=== PATIENT | male | born 1970 | race Caucasian/White ===

== ENCOUNTER 2020-05-23 10:46 | Emergency (ER) | payer BC, SELFPAY ==
[2020-05-23 11:20] VITALS: BP 139/87; PULSE 77; RESP 17; TEMP 36.9; O2SAT 98; BMI 32.1
--- NOTE | 2020-05-23 11:36 | HMH.EDUTC ---
[facility] [place] Clinical Impression: Encounter for laboratory testing for COVID-19 virus Disposition: Home, Self-Care Condition on Discharge: Good Instructions: DI for COVID-19 (Suspected or Confirmed ), COVID-19: Testing and Tracing, Preventing the Spread of Coronavirus Discharge Instructions Additional Instructions: *Monitor Temp, Over the counter Motrin or Tylenol as directed/as needed Tylenol every 4 hours and Motrin every 6 hours (as long as your family doctor has told you that you can take it) for fever or pain. and straight to ER if unable to lower temp less than 101.0 after medication given *Warm salt water gargles may help to soothe the throat *Throat Lozenges *Warm fluids like tea with honey may help to soothe the throat *Sleep elevated *Humidifier/Vaporizer *Flonase 2 sprays in each nostril daily but be aware that it may take 2-3 days before you notice improvement Follow up IMMEDIATELY for new or worsening symptoms or no Noticeable improvement over the next 48-72 hours. 911 for difficulty breathing or swallowing You were tested for today for COVID19 your test result should be back in the next 24-48 hours, you may call to the [facility] to see if your test results are back in the next 48 hours [phone] [facility] hours are 9am-9pm You was given a handout with instructions for Self Quarantine and Self isolation for while you wait on test results and what to do if they are positive If you are positive the Health Dept will be contacting you also Prescriptions: Fluticasone Propionate [Flonase 50mcg nasal spray 16gm] 1 - 2 spr NS DAILY #1 bottle Transmission Status: Pending to [facility] Referrals: Jaden Loja MD [Primary Care Provider] - As needed Forms: Work/School Release Time of Disposition: 11:42 Medical Decision Making - Justice Inquiry Pt receiving controlled substance: No Justice was queried for this patient: No Vital Signs: 05/23/20 11:33 Temperature 98.4 F Temperature Source Oral Pulse Rate [Right Brachial] 77 Respiratory Rate 17 Blood Pressure [Right Arm] 139/87 Blood Pressure Mean [Right Arm] 104 Blood Pressure Source [Right Arm] Automatic Cuff Blood Pressure Position [Right Arm] Sitting 02 Sat by Pulse Oximetry 98 Oxygen Delivery Method Room Air Orders (Tests/Meds): ORDERS Category Date Time Status Covid-19 Nasal PCR ([facility]) Routine Lab 05/23/20 11:23 Ordered [facility] UTC HPI - General Stated complaint: Covid test Time Seen by Provider: 05/23/20 11:36 Mode of Arrival: Ambulatory Source of Information: Patient Limitations: No Limitations Description of Symptoms (Recalled from Triage Doc. by RN): PATIENT REQUESTING COVID TEST D/T EXPOSURE. C/O SNEEZING AND RUNNY NOSE SINCE THIS MORNING HEENT Symptoms (Recalled from RN notes): Yes Resp Symptoms (Recalled from RN notes): No Skin Symptoms (Recalled from RN notes): No MS Symptoms (Recalled from RN notes): No Functional Status (Recalled from RN notes): WNL - History of Present Illness Provider Complaint: Patient state that he has been having some nasal congestion and drainage State that he has been having clear drainage from his nose States that he does have allergies and not sure if that is going on or not so he come in to get checked - Related Data Home Medications Medication Instructions Recorded Confirmed lisinopril 20 mg tablet PO #60 tab 01/11/19 01/11/19 Previous Rx's Medication Instructions Recorded Fluticasone Propionate [Flonase 1 - 2 spr NS DAILY #1 bottle 05/23/20 50mcg nasal spray 16gm] Allergies Allergy/AdvReac Type Severity Reaction Status Date / Time No Known Allergies Allergy Unverified 01/14/19 15:19 - Worker's Comp Is this a Worker's Comp case?: No [facility] History - Hepatitis A Screen Drug use history?: No High risk sexual behaviors?: No History of sexually transmitted infection?: No Currently employed?: No Childcare worker?: No Do you have indoor plumbing?: Yes Do you have electr
[2020-05-23 11:51] VITALS: BP 139/87; PULSE 77; RESP 17; TEMP 36.9; O2SAT 98
--- NOTE | 2020-05-23 20:59 | PC.NURSE ---
PT NOTIFIED OF POSITIVE COVID RESULTS
== END 2020-05-23 11:55 | disposition home or self-care (01) ==
PROVIDERS: Emergency Provider Nurse Practitioner; PCP Family Medicine
DX: U07.1 COVID-19 (principal); I10 Essential (primary) hypertension
CPT/HCPCS: 99202; G0463; U0003

== ENCOUNTER 2024-05-29 21:47 | Emergency (ER) | payer BC, SELFPAY ==
[2024-05-29 21:47] VITALS: BP 148/81; PULSE 89; RESP 22; TEMP 36.8; O2SAT 100; BMI 32.1
[2024-05-29 21:58] VITALS: BP 148/81; O2SAT 95
[2024-05-29 22:01] VITALS: BP 147/93; O2SAT 95
--- NOTE | 2024-05-29 22:01 | CT_ITS ---
PROCEDURE INFORMATION: Exam: CT Cervical Spine Without Contrast Exam date and time: 05/30/2024 12:01 AM Age: 53 years old Clinical indication: Injury or trauma; Fall; Blunt trauma; Additional info: Head injury after fall TECHNIQUE: Imaging protocol: Computed tomography of the cervical spine without contrast. Radiation optimization: All CT scans at this facility use at least one of these dose optimization techniques: automated exposure control; mA and/or kV adjustment per patient size (includes targeted exams where dose is matched to clinical indication); or iterative reconstruction. COMPARISON: CT HEAD/BRAIN WO CON 05/29/2024 11:55 PM FINDINGS: Bones: The alignment of the cervical spine is within normal limits. No evidence of acute fractures, dislocations, or subluxations is noted. The vertebral bodies and intervertebral disc spaces are well-preserved. The spinal canal is patent, with no evidence of spinal stenosis or neural foraminal narrowing. No acute posttraumatic changes are observed. There is no evidence of ligamentous injury, soft tissue swelling, or hematoma. While this study was primarily performed in the context of trauma, it is worth noting that there are no significant degenerative changes. There is straightening of the normal spinal curvature. Prevertebral and retropharyngeal spaces: The prevertebral and paraspinous soft tissues appear normal, without evidence of fluid collection. Lungs: Lung apices are normal. Nerves: No significant nerve root impingement is identified. Soft tissues: See Bones finding. IMPRESSION: In the context of posttraumatic evaluation, the cervical spine CT demonstrates no acute fractures, dislocations, or subluxations. There is no evidence of spinal canal or neural foraminal stenosis. No acute posttraumatic soft tissue or ligamentous injuries are identified.
--- NOTE | 2024-05-29 22:01 | CT_ITS ---
PROCEDURE INFORMATION: Exam: CT Head Without Contrast Exam date and time: 05/29/2024 11:55 PM Age: 53 years old Clinical indication: Injury or trauma; Fall; Blunt trauma (contusions or hematomas); Additional info: Head injury after fall TECHNIQUE: Imaging protocol: Computed tomography of the head without contrast. Radiation optimization: All CT scans at this facility use at least one of these dose optimization techniques: automated exposure control; mA and/or kV adjustment per patient size (includes targeted exams where dose is matched to clinical indication); or iterative reconstruction. COMPARISON: CT HEAD/BRAIN WO CON 05/29/2024 11:55 PM FINDINGS: Brain: There is moderate subarachnoid hemorrhage in the parafalcine regions bilaterally. No evidence for midline shift or significant mass effect. There is a small right basal ganglia cyst. Cerebral ventricles: No ventriculomegaly. Paranasal sinuses: Visualized sinuses are unremarkable. No fluid levels. Mastoid air cells: Visualized mastoid air cells are well aerated. Bones: Unremarkable. No acute fracture. Soft tissues: There is large soft tissue swelling over the high left parietal calvarium. IMPRESSION: Moderate volume bilateral parafalcine subarachnoid hemorrhage. No midline shift or mass effect.
--- NOTE | 2024-05-29 22:07 | ED_ITS ---
Discharge Plan Disposition Patient Disposition: Home, Self-Care Prescriptions Prescriptions: New methocarbamol 500 mg tablet 1,000 mg PO Q6H PRN (Reason: pain) Qty: 30 0RF No Action lisinopril 20 mg tablet 20 mg PO DAILY Qty: 60 fluticasone propionate 120 SPR/BOT bottle 1 - 2 spr NS DAILY Qty: 1 0RF Rx Instructions: one spray in each nostril daily Referrals Follow up/Referrals: Jaden Loja MD [Primary Care Provider] - See instructions Activity Restrictions/Add. Instructions Additional Instructions/Restrictions: Please follow-up with your primary care provider. Please return to the emergency department if you develop any new or worsening symptoms or become c oncerned for your health. Your rupal will need to be removed in the next 7 to 10 days. Please keep the area clean and dry, please allow warm soapy water to run over it in the shower, do not soak it. Clinical Impressions Clinical Impression: Head injury, Laceration of scalp Print Language Print Language: [place] Discharge ED Provider: Serg Link General Adult HPI <Manohar Billingsley MD - Last Filed: 05/29/24 22:50> General Chief complaint: Fall Stated complaint: fall from standing position + LOC Time Seen by Provider: 05/29/24 21:49 Mode of Arrival: EMS Source of Information: Patient and EMS Limitations: No Limitations Description of Symptoms (Recalled from ER Triage Doc. by RN): pt arrived via ems w/ c/o mechanical fall from standing position s/p slip and fall on ice. +loc, - blood thinners. pt A&0, c-collar in place. lac to posterior scalp noted History of Present Illness HPI narrative: 53-year-old male presenting today after a head injury and loss of consciousness. Was at work and was carrying a grease rajput with lukewarm grease where he slipped and fell struck his head on the ground of the side of the wall he is unclear as he does not recall anything beyond falling. Woke up in the ambulance. Did have loss of consciousness. Currently denies any symptoms other than some mild pain at the site of the head laceration and pain. Denies being on any blood thinners. He does admit to having 6 or 7 beers. Denies any significant cervical spine pain chest abdomen pelvis or otherwise long bone pain. Tetanus status is unknown Related Data Home Medications ?Medication ?Instructions ?Recorded ?Confirmed lisinopril 20 mg tablet 20 mg PO DAILY Hypertension #60 01/11/19 05/23/20 tabs Previous Rx's ?Medication ?Instructions ?Recorded fluticasone propionate 50 1 - 2 spr NS DAILY ##1 05/23/20 mcg/actuation nasal spray,suspension methocarbamol 500 mg tablet 1,000 mg (2 x 500 mg) PO Q6H PRN 05/30/24 pain #30 tabs Allergies Allergy/AdvReac Type Severity Reaction Status Date / Time No Known Allergies Allergy Unverified 01/14/19 15:19 ON LICENSE OF [facility] <Manohar Billingsley MD - Last Filed: 05/29/24 22:50> ON LICENSE OF [facility] Disclaimer: The information contained in this section may have been updated after the patient was seen, as this information can be updated by other users. Social History (System 01/14/19 @ 15:19 by Lakia Benavidez) Smoking Status: Never smoker alcohol intake: never substance use type: denies use current occupational status: other Travel in the last 8 weeks: None household members: family housing: house Have you lived/traveled outside US in past 30 days?: No Contact w/someone who lives/traveled outside US past 30 days?: No Exposure to someone with infectious disease in past 14 days?: No Do you have a fever (greater than 100.4 F or 38 C)?: No Have you tested positive for COVID-19: No Exposed to someone with COVID-19 in past 14 days?: No Do you have a sore throat?: No Do you have a cough?: No Do you have any weakness?: No Do you have any diarrhea?: No Are you experiencing any unusual bleeding?: No Do you have any muscle aches/pain?: No Do you have any abdominal pain?: No Are you experiencing loss of taste or smell?: No Other Medical History Have you received the Pneumonia Vaccine: No <Manohar Billingsley MD - Last Filed: 05/29/24 22:50> ROS Obtained: Yes All systems reviewed & no additional complaints except as documented Physical Exam <Manohar Billingsley MD - Last Filed: 05/29/24 22:50> General General appearance: alert and in no apparent distress Head Head exam: other (No depressible fracture Islas sign or raccoon eyes there is a 5 cm jagged laceration in the scalp in the posterior aspect no obvious foreign bodies noted) Neck Neck exam: Absent tenderness (In c-collar) Chest Chest inspection: Present normal inspection; Absent symmetric chest wall rise Respiratory Respiratory exam: Present normal lung sounds bilaterally; Absent respiratory distress Cardiovascular Cardiovascular exam: Present regular rate; Absent normal rhythm Abdominal Exam Abdominal exam: Present soft; Absent distention Neurological Exam Neurological exam: Present alert, oriented X3, CN II-XII intact and normal gait; Absent motor sensory deficit Medical Decision Making <Manohar Billingsley MD - Last Filed: 05/29/24 22:50> Medical Records Screening: Per USPSTF and CDC recommendations, given the prevalence of disease in our region, it is our hospital?s policy to screen for HIV and viral Hepatitis for all patients aged 18 and over and those with ongoing risk factors. Justice Inquiry Pt receiving controlled substance: No Vital Signs: 05/29/24 21:47 05/29/24 21:58 05/29/24 22:01 Temperature 98.2 F Temperature Source Oral Pulse Rate Pulse Rate [Apical] 89 Respiratory Rate 22 Blood Pressure 148/81 H 147/93 H Blood Pressure [Right Arm] 148/81 H Blood Pressure Mean 97 109 Blood Pressure Mean [Right Arm] 103 02 Sat by Pulse Oximetry 100 95 95 Oxygen Delivery Method Room Air Room Air Room Air 05/29/24 22:30 Temperature Temperature Source Pulse Rate 80 Pulse Rate [Apical] Respiratory Rate 19 Blood Pressure 152/96 H Blood Pressure [Right Arm] Blood Pressure Mean 115 Blood Pressure Mean [Right Arm] 02 Sat by Pulse Oximetry 95 Oxygen Delivery Method Room Air Orders (Tests/Meds): ED MEDICATIONS Discontinued Medications Generic Name Dose Route Start Last Admin Trade Name Freq PRN Reason Stop Dose Admin Tetanus/Reduced Diphtheria/Acell Pertussis 0.5 ml 05/29/24 22:01 05/29/24 22:32 Tet/Diphth/Pert-Adult 0.5ml Syringe IM 05/29/24 22:02 0.5 ml .ONCE ONE Administration ORDERS Category Date Time Status CT cervical spine wo con Stat Cat Scan 05/29/24 22:[address] head/brain wo con Stat Cat Scan 05/29/24 22:01 Taken Medical Decision Narrative: Patient with above history and physical GCS of 15 normal neurologic exam does not appear clinically intoxicated at the moment. Only has pain in the posterior aspect of his head but given the fact that he has had a few beers we will get a CT scan of his head and cervical spine. Patient has no chest abdomen pelvis or long bone pain. No indication that this was a syncopal episode rather a loss of consciousness after a minor head injury. Likely has had a mild concussion. Scans pending Tdap updated will reassess shortly. Additionally laceration was repaired with rupal which will be removed in 10 days Care transitioned to Dr. Link at 11 PM to evaluate patient CT scans and final disposition. <Serg Link MD - Last Filed: 05/30/24 00:26> Vital Signs: 05/29/24 21:47 05/29/24 21:58 05/29/24 22:01 Temperature 98.2 F Temperature Source Oral Pulse Rate Pulse Rate [Apical] 89 Respiratory Rate 22 Blood Pressure 148/81 H 147/93 H Blood Pressure [Right Arm] 148/81 H Blood Pressure Mean 97 109 Blood Pressure Mean [Right Arm] 103 02 Sat by Pulse Oximetry 100 95 95 Oxygen Delivery Method Room Air Room Air Room Air 05/29/24 22:30 Temperature Temperature Source Pulse Rate 80 Pulse Rate [Apical] Respiratory Rate 19 Blood Pressure 152/96 H Blood Pressure [Right Arm] Blood Pressure Mean 115 Blood Pressure Mean [Right Arm] 02 Sat by Pulse Oximetry 95 Oxygen Delivery Method Room Air Orders (Tests/Meds): ED MEDICATIONS Discontinued Medications Generic Name Dose Route Start Last Admin Trade Name Freq PRN Reason Stop Dose Admin Tetanus/Reduced Diphtheria/Acell Pertussis 0.5 ml 05/29/24 22:01 05/29/24 22:32 Tet/Diphth/Pert-Adult 0.5ml Syringe IM 05/29/24 22:02 0.5 ml .ONCE ONE Administration ORDERS Category Date Time Status CT cervical spine wo con Stat Cat Scan 05/29/24 22:[address] head/brain wo con Stat Cat Scan 05/29/24 22:01 Taken Medical Decision Narrative: Patient with above history and physical GCS of 15 normal neurologic exam does not appear clinically intoxicated at the moment. Only has pain in the posterior aspect of his head but given the fact that he has had a few beers we will get a CT scan of his head and cervical spine. Patient has no chest abdomen pelvis or long bone pain. No indication that this was a syncopal episode rather a loss of consciousness after a minor head injury. Likely has had a mild concussion. Scans pending Tdap updated will reassess shortly. Additionally laceration was repaired with rupal which will be removed in 10 days Care transitioned to Dr. Link at 11 PM to evaluate patient CT scans and final disposition. Fariba EVANS: I assumed care of the patient at the time of handoff from the prior provider. On reassessment patient remains hemodynamically stable. CT imaging shows no acute intracranial trauma, no acute cervical fracture. No fracture on the radiographs. Laceration remains hemostatic. Patient's c-collar was cleared at bedside. No midline C-spine tenderness. No pain with range of motion of the midline. Does have some right paraspinal/trapezius pain. Patient discharged in stable condition with return precautions instructions regarding wound care and symptomatic care and prescription for Robaxin. Procedures <Manohar Billingsley MD - Last Filed: 05/29/24 22:50> Laceration Laceration 1: Site: scalp Size (cm): 5 Description: linear Depth: simple, single layer Local Anesthetic: lidocaine 1% and with epi Amount of anesthesia used (mL): 5 Pre-repair: irrigated extensively Skin layer closed with: other (rupal x 6 ) Critical Care <Manohar Billingsley MD - Last Filed: 05/29/24 22:50> Critical Care Time Critical Care Time: No
--- NOTE | 2024-05-29 22:09 | PC.NURSE ---
Report given to Karlie LARIOS
[2024-05-29 22:30] VITALS: BP 152/96; PULSE 80; RESP 19; O2SAT 95
[2024-05-29] MEDS: TET/DIPHTH/PERT-ADULT 0.5ML SYRINGE 0.5 ML IM (22:32)
[2024-05-29 23:00] VITALS: BP 152/92; PULSE 76; RESP 15; O2SAT 96
[2024-05-29 23:30] VITALS: BP 157/81; PULSE 80; RESP 15; O2SAT 96
--- NOTE | 2024-05-30 00:01 | INFXCTL.NOTE ---
Pt to CT scan via stretcher
[2024-05-30 00:30] VITALS: BP 148/85; PULSE 84; RESP 23; O2SAT 95
--- NOTE | 2024-05-30 00:39 | PC.NURSE ---
Contacted transfer center regarding transfer of this patient. Once images had been power shared they will give us a call back. RAD called to [facility].
[2024-05-30 00:48] LABS: Basophils # 0.1 K/mm3 (0-0.2); Basophils % 0.5 % (0.1-2.0); Eosinophils # 0.1 K/mm3 (0.0-0.4); Eosinophils % 0.9 % (0.1-12.0); Hemoglobin 14.2 g/dL (14.1-18.0); Lymphocytes # 1.5 K/mm3 (0.7-4.5); Mean Corpuscular HGB Conc 34.6 g/dL (31.8-35.4); Mean Corpuscular Hemoglobin 28.7 pg (27.0-31.2); Mean Platelet Volume 8.8 fl (7.4-10.4); Monocytes # 0.8 K/mm3 (0.1-1.0); Monocytes % 8.5 % (1.7-9.3); Neutrophils # 6.9 K/mm3 (1.8-7.8); Neutrophils % 73.8 % (37.0-80.0); Platelet Count 295 K/mm3 (142-424); Red Blood Count 4.94 M/mm3 (4.60-6.20); Red Cell Distribution Width 11.9 % (11.5-17.5); White Blood Count 9.3 K/mm3 (4.8-10.8)
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
--- NOTE | 2024-05-30 00:49 | XR_ITS ---
PROCEDURE INFORMATION: Exam: XR Chest Exam date and time: 05/30/2024 12:56 AM Age: 53 years old Clinical indication: Injury or trauma; Fall; Shortness of breath; Blunt trauma (contusions or hematomas); Additional info: SOA TECHNIQUE: Imaging protocol: Radiologic exam of the chest. Views: 1 view. COMPARISON: CT CERVICAL SPINE WO CON 05/30/2024 12:01 AM FINDINGS: Lungs: No evidence of acute pulmonary disease or infiltrates Pleural spaces: No large effusion or pneumothorax. Heart/Mediastinum: No evidence of mediastinal widening or cardiac silhouette enlargement; the mediastinum and heart appear within normal limits for contour and size. Bones/joints: No evidence of acute osseous abnormalities within the visualized portions of the thoracic spine and ribs. Osseous structures appear appropriate for patient age. IMPRESSION: No dense parenchymal consolidation, pleural effusion, or pneumothorax.
[2024-05-30 00:53] LABS: Albumin Level 4.2 g/dl (3.5-5.0); Chloride 99 mmol/L (98-107); Potassium 4.1 mmoL/L (3.5-5.1); Sodium 132 mmol/L (136-145)
--- NOTE | 2024-05-30 00:54 | PC.NURSE ---
Dr. Link on phone with at this time.
[2024-05-30 00:56] LABS: Alanine Aminotransferase 39 U/L (12-78); Albumin/Globulin Ratio 1.4 (1.1-1.8); Alkaline Phosphatase 110 U/L (38-126); Anion Gap 13.1 mEq/L (5-15); Aspartate Amino Transferase 60 U/L (17-59); Bilirubin,Total 0.6 mg/dl (0.2-1.3); Blood Urea Nitrogen 13 mg/dl (9-20); Carbon Dioxide 24 mmol/L (22.0-30.0); Creatinine Clearance Estimated 208 mL/min (50-200); Estimated Glomerular Filt Rate 140 ml/min (>60); GFR (African American) 170 ML/MIN (>60); Globulin 2.9 g/dL (1.3-3.2); Total Protein,Serum 7.1 g/dl (6.3-8.2)
[2024-05-30 00:57] LABS: Calcium 9.3 mg/dl (8.4-10.2); Glucose 115 mg/dl (74-100)
[2024-05-30 00:59] LABS: Activated Partial Thrombo Time 28.3 seconds (22.8-30.6); INR 1.05 (0.9-1.1); Prothrombin Time 11.7 seconds (10.1-12.5)
[2024-05-30 01:00] VITALS: BP 160/89; PULSE 88; RESP 23; O2SAT 97
[2024-05-30 01:07] VITALS: BP 160/89; PULSE 91; RESP 18; TEMP 36.6; O2SAT 99
[2024-05-30 01:30] VITALS: BP 164/91; PULSE 90; RESP 24; O2SAT 96
== END 2024-05-30 01:57 | disposition other institution (70) ==
PROVIDERS: Emergency Provider Emergency Medicine; PCP Family Medicine
DX: S06.6X1A Traumatic subarachnoid hemorrhage with loss of consciousness of 30 minutes or less, initial encounter (principal); S01.01XA Laceration without foreign body of scalp, initial encounter; Z23 Encounter for immunization; R51.9 Headache, unspecified; W00.0XXA Fall on same level due to ice and snow, initial encounter; Y93.89 Activity, other specified; Y92.89 Other specified places as the place of occurrence of the external cause
CPT/HCPCS: 70450; 71045; 72125; 72170; 80053; 85025; 85610; 85730; 90471; 90715; 99285

== ENCOUNTER 2024-07-05 15:10 | Outpatient (CLI) | payer BC, SELFPAY ==
--- NOTE | 2024-07-05 15:15 | XR_ITS ---
FINAL REPORT CLINICAL HISTORY: INJURY fell 1 month ago; states swelling around 1st digit FINDINGS: AP, oblique, and lateral views of the left wrist were obtained. There is no prior exam for comparison. There is no acute fracture or dislocation. The joint spaces are preserved. The soft tissues are normal. IMPRESSION: No acute osseous abnormality of the left wrist. If pain persists, MR is recommended. Reviewed, Interpreted and Dictated by Lucero Burrows MD Transcribed by Gail Winchester Authenticated and [facility]
== END 2024-07-05 23:59 | disposition home or self-care (01) ==
LOC: RAD 15:12
PROVIDERS: PCP Family Medicine; Visit Provider Nurse Practitioner
DX: S69.92XA Unspecified injury of left wrist, hand and finger(s), initial encounter (principal)
CPT/HCPCS: 73110

== ENCOUNTER 2024-07-19 12:44 | Emergency (ER) | payer BC, SELFPAY ==
[2024-07-19 12:53] VITALS: BP 161/90; PULSE 113; RESP 18; TEMP 36.6; O2SAT 97; BMI 32.8
--- NOTE | 2024-07-19 13:39 | ECG_ITS ---
APPROVED REPORT Exam: Resting ECG HR:103 bpm ECG Measurements Heart Rate 103 AXES WY 180 P 44 QRSd 84 QRS 12 QT 328 T 29 QTc 387 Conclusion SINUS TACHYCARDIA ABNORMAL RHYTHM ECG UNCONFIRMED REPORT Electronically signed by : Jeff Billingsley, 07/19/2024 15:34:08
--- NOTE | 2024-07-19 13:47 | ED_ITS ---
<Statement entered by Manohar Billingsley MD - 07/19/24 15:28> I was consulted by the JUAN CARLOS, and we discussed the complexity of the problems being addressed. I approved the treatment and management plan for this patient's care in the emergency department, thus performing a substantive portion of the medical decision making. Manohar Billingsley MD, DELORES, FACEP Discharge Plan Disposition Patient Disposition: Xfer Short-Term Hosp Prescriptions Prescriptions: No Action lisinopril 20 mg tablet 20 mg PO BID Qty: 60 Referrals Follow up/Referrals: Jaden Loja MD [Primary Care Provider] - See instructions Activity Restrictions/Add. Instructions Additional Instructions/Restrictions: Transfer to [facility] Dr. Haynes Clinical Impressions Clinical Impression: Subarachnoid hemorrhage Stand Alone Forms Stand Alone Forms: Transfer Record - ED Print Language Print Language: Maori Discharge ED Provider: Manohar Billingsley General Adult HPI General Chief complaint: Dizziness Stated complaint: dizziness, weakness in left hand Time Seen by Provider: 07/19/24 13:47 Mode of Arrival: Ambulatory Description of Symptoms (Recalled from ER Triage Doc. by RN): Patient complaint of dizziness when he moves around. States that his left leg and left hand has been week also. States this has been going on for approx 1 week. History of Present Illness HPI narrative: Presents for dizziness intermittently and left-sided weakness. This has been present since mid May when he had an accidental fall on black ice striking his head. He suffered a bilateral parafalcine subarachnoid hemorrhage. We saw the patient initially and transferred him to the [facility]. Patie nt and states that he was observed for 6 hours had a 6-hour CT scan that was stable from the initial and ultimately discharged. Patient however has been having ongoing dizziness and left-sided weakness since. According to the patient and the patient's they have had no follow-up and got no education on a traumatic subarachnoid hemorrhage after discharge and had no follow-up arranged for anyone other than PCP. Currently patient reports no new dizziness no new weakness and no other focal neurologic deficits. Patient ambulated in the ER to his room. He denies any chest pain fever chills hemoptysis hematochezia melena nausea vomit diarrhea. Related Data Home Medications ?Medication ?Instructions ?Recorded ?Confirmed lisinopril 20 mg tablet 20 mg PO BID Hypertension #60 tabs 01/11/19 07/19/24 Allergies Allergy/AdvReac Type Severity Reaction Status Date / Time No Known Allergies Allergy Unverified 01/14/19 15:19 [facility] Disclaimer: The information contained in this section may have been updated after the patient was seen, as this information can be updated by other users. Social History (System 01/14/19 @ 15:19 by Lakia Benavidez) Smoking Status: Unknown if ever smoked alcohol intake: never substance use type: denies use current occupational status: other Travel in the last 8 weeks: None household members: family housing: house Have you lived/traveled outside [place] in past 30 days?: No Contact w/someone who lives/traveled outside [place] past 30 days?: No Exposure to someone with infectious disease in past 14 days?: No Do you have a fever (greater than 100.4 F or 38 C)?: No Have you tested positive for COVID-19: No Exposed to someone with COVID-19 in past 14 days?: No Do you have a sore throat?: No Do you have a cough?: No Do you have any weakness?: No Do you have any diarrhea?: No Are you experiencing any unusual bleeding?: No Do you have any muscle aches/pain?: No Do you have any abdominal pain?: No Are you experiencing loss of taste or smell?: No Other Medical History Have you received the Pneumonia Vaccine: No ROS Obtained: Yes Systems reviewed as appropriate & no additional complaints except as documented Physical Exam General General appearance: alert and in no apparent distress Respiratory Respiratory exam: Present normal lung sounds bilaterally Cardiovascular Cardiovascular exam: Present regular rate Neurological Exam Neurological exam: Present alert and oriented X3 Medical Decision Making Medical Records Medical records reviewed: Yes I reviewed the patient's medical records. Screening: Per USPSTF and CDC recommendations, given the prevalence of disease in our region, it is our hospital?s policy to screen for HIV and viral Hepatitis for all patients aged 18 and over and those with ongoing risk factors. Justice Inquiry Pt receiving controlled substance: No Vital Signs: 07/19/24 12:53 Temperature 97.9 F Temperature Source Oral Pulse Rate [Radial] 113 H Respiratory Rate 18 Blood Pressure [Right Arm] 161/90 H Blood Pressure Mean [Right Arm] 113 Blood Pressure Source [Right Arm] Automatic Cuff Blood Pressure Position [Right Arm] Sitting 02 Sat by Pulse Oximetry 97 Oxygen Delivery Method Room Air Lab Data Lab results reviewed: Yes I reviewed the patient's lab results. Orders (Tests/Meds): ORDERS Category Date Time Status CT head/brain wo con Stat Cat Scan 07/19/24 14:10 Completed Medical Decision Narrative: In summary patient is a 53-year-old male who presents to the emergency department for evaluation of ongoing dizziness and left-sided weakness after a traumatic bilateral parafalcine hemorrhage in May. Patient is currently normotensive at 161/90 is slightly tachycardic on arrival at 113 with sinus tachycardia the bedside monitor breathing 18 times a minute satting at 97% on room air upon arrival, with a temperature of 97.9.. Physical exam is remarkable for no dizziness currently at the time of my exam. Patient is awake alert and oriented person place and circumstance. Glascow coma score is 15. Cranial nerves II through XII are intact grossly to exam. Pupils equal round reactive to light with normal extraocular movement. Patient has no posterior cervical tenderness. He has no nuchal rigidity or meningeal signs. Provocative testing for peripheral dizziness was negative for nystagmus or dizziness inducement. Neurologic exam shows patient does have muscle weakness in the left hemisphere with left upper and lower extremity drift to the bed but not completely. Diffe rential diagnosis includes sequela of initial traumatic subarachnoid hemorrhage versus new bleed versus peripheral or central vertigo etc. Initial workup will be conducted with CT scan without contrast. Initial interventions deferred until CT scan. Initial workup reviewed by me and patient has significantly new evidence of subarachnoid hemorrhage on the right with midline shift especially in comparison to my informal and interpretation of both images from May to today. Given that patient has significant signs of continued bleeding with old and new bleed suggested I had interactive discussion with [facility] [place] Dr. Haynes about patient EAST findings and patient management and he has been accepted for further evaluation and care. Patient will be flying or ALS transport if aircraft is not available. Critical Care Critical Care Time Critical Care Time: Yes Attestation: On 07/19/24, the high probability of a clinically significant, sudden or life threatening deterioration of the following system(s) required my full and direct attention, intervention and personal management. The time I documented below is in addition to time spent performing reported procedures but includes the following listed in this critical care notation. Total Time Total Critical Care Time: 35
--- NOTE | 2024-07-19 14:10 | CT_ITS ---
FINAL REPORT TECHNIQUE: Noncontrast exam This study was performed with techniques to keep radiation doses as low as reasonably achievable, (ALARA). Individualized dose reduction techniques using automated exposure control or adjustment of mA and/or kV according to the patient''s size were employed. CLINICAL HISTORY: Posttraumatic subarachnoid bleed, dizziness, left- possible STROKE/BLEED COMPARISON: 05/30/2024 FINDINGS: There is a predominantly isodense right hemispheric subdural hematoma measuring 27 mm in thickness which is new since the prior study. There is a small left hemispheric subdural hemorrhage measuring 4 mm in thickness. The right subdural hemorrhage is considered subacute in age with a probable early small acute or subacute component. The left subdural hemorrhage is considered subacute in age. There is midline shift to the left measuring 6 mm. Mild effacement is noted of the right ventricle. Bone windows show no evidence of fracture. IMPRESSION: Interval development of predominantly subacute right hemispheric subdural hemorrhage with tiny left subdural hemorrhage. Reviewed, Interpreted and Dictated by Shereen Donnelly MD Transcribed by Yenny Holcomb Authenticated and [facility]
--- NOTE | 2024-07-19 14:32 | PC.NURSE ---
Lg Valle [facility]C [facility]
[2024-07-19 15:10] VITALS: BP 166/98; PULSE 110; RESP 20; TEMP 36.6; O2SAT 97
== END 2024-07-19 15:12 | disposition short-term general hospital (02) ==
PROVIDERS: Emergency Provider Student in an Organized Health Care Education/Training Program; PCP Family Medicine
DX: I60.9 Nontraumatic subarachnoid hemorrhage, unspecified (principal); R42 Dizziness and giddiness; G81.94 Hemiplegia, unspecified affecting left nondominant side
CPT/HCPCS: 70450; 93005; 99291